=== PATIENT | female | born 1970 | race Caucasian/White ===

== ENCOUNTER 2016-09-07 09:02 | Emergency (ER) ==
[2016-09-07 09:09] VITALS: BP 149/095
[2016-09-07 09:41] LABS: MANUAL DIFF NEEDED? NO
[2016-09-07 09:44] LABS: BASO% 0.3 % (0.0-0.8); EOS# 0.09 X1000 (0.0-0.7); EOS% 0.6 % (0.0-10.0); HEMATOCRIT 41.7 % (37.0-47.0); HEMOGLOBIN 14.5 g/dL (12.0-16.0); IMM GRAN# 0.27 X1000 (0.0-0.04); IMM GRAN% 1.8 % (0.0-0.5); LYMPH# 1.94 X1000 (1.2-3.4); LYMPH% 13.1 % (20.5-51.1); MCH 29.5 PG (27-31); MCHC 34.8 g/dL (33-37); MCV 84.9 FL (81-99); MONO# 0.68 X1000 (0.11-0.59); MONO% 4.6 % (1.7-9.3); MPV 10.5 FL (7.4-10.4); NEUT% 79.6 % (42.2-75.2); PLT 421 X1000 (130-400); RBC 4.91 XMIL (4.2-5.4)
[2016-09-07 10:04] LABS: AGAP 17; ALBUMIN 4.1 g/dL (3.5-5.0); ALKALINE PHOSPHATASE 78 U/L (32-104); BUN 20 mg/dL (8-22); CALCIUM 9.1 mg/dL (8.8-10.2); CHLORIDE 98 mmol/L (98-107); COSMO 276; GOT 36 U/L (10-30); GPT 42 U/L (10-36); POTASSIUM 3.6 mmol/L (3.5-5.1); SODIUM 133 mmol/L (136-145); TCO2 18 mmol/L (25-35); TOTAL PROTEIN 7.5 g/dL (6.3-8.3)
--- NOTE | 2016-09-07 10:10 | Diag Imaging Result Document ---
PROCEDURE NAME: CHEST-2 VIEWS - 09/07/2016 PA AND LATERAL RADIOGRAPH OF THE CHEST: COMPARISON: 05/18/2011. FINDINGS: The lungs are grossly clear. There is no discrete pleural fluid collection or evidence of pneumothorax. The cardiomediastinal silhouette and upper airway are grossly unremarkable. IMPRESSION: No evidence of acute chest pathology.
[2016-09-07] MEDS ORDERED: ZOFRAN IV ONE (10:40)
[2016-09-07] MEDS ORDERED: ZITHROMAX PO ONE (10:40)
[2016-09-07] MEDS ORDERED: TYLENOL WITH CODEINE #3 PO ONE (10:40)
[2016-09-07] MEDS ORDERED: DUONEB (A & A) INH ONE (10:42)
--- NOTE | 2016-09-07 11:00 | PROVIDER DOCUMENTATION ---
HPI-Respiratory General - General Source: patient - History of Present Illness-Resp Quality of Pain: reports: aching Severity in ED: reports: severe Onset/Duration: reports: other (10 days) Timing: reports: getting worse Cough Quality/Degree: reports: dry cough Current Respiratory Medication Therapy: Initiated see nurses note Similar Symptoms Previously?: Yes Recently seen or treated by another doctor?: Yes <Linus Wadsworth - Last Filed: 09/07/16 12:56> <Jaymie Puente - Last Filed: 09/07/16 13:01> - General Chief Complaint: Shortness of Breath Stated Complaint: SOB Time Seen by Provider: 09/07/16 09:29 Allergies/Adverse Reactions: Patient Allergies Allergy/AdvReac Type Severity Reaction Status Date / Time aspirin Allergy SHORTNESS Verified 09/07/16 09:14 OF BREATH nalbuphine HCl * Allergy ANAPHYLAXIS Verified 09/07/16 09:14 [From Nubain] Penicillins Allergy HIVES Verified 09/07/16 09:14 sumatriptan [From Imitrex] Allergy SWELLING Verified 09/07/16 09:14 sumatriptan succinate * Allergy SWELLING Verified 09/07/16 09:14 [From Imitrex] Tetracyclines Allergy SHORTNESS Verified 09/07/16 09:14 OF BREATH Home Medications: [facility] [place] 09/07/16 - History of Present Illness-Resp Nature of Presenting Problem: Reports to er with cc of sob x 10 days with left upper chest pain reports seen pcp given steroids and cough syrup reports no relief. Pt is holding her left chest. Reports stress test 2 years ago. Dendain n,v,f. (Linus Wadsworth) Review of Systems - Adult - REVIEW OF SYSTEMS - ADULT Constitutional: denies: chills, fever, fatique Eyes: reports: no symptoms reported Ears, Nose, Mouth & Throat: reports: no symptoms reported Cardiovascular: reports: chest pain. denies: irregular heart rate, orthopnea, syncope Respiratory: reports: cough, shortness of breath. denies: excessive sputum production, hemoptysis, pleurisy, wheezing Gastrointestinal: reports: no symptoms reported Genitourinary: reports: no symptoms reported Musculoskeletal: reports: no symptoms reported Integumentary: reports: no symptoms reported Neurological: reports: no symptoms reported Psychiatric: reports: no symptoms reported Endocrine: reports: no symptoms reported Hematologic/Lymphatic: reports: no symptoms reported Allergic/Immunologic: reports: no symptoms reported All Other Systems: Reviewed and Negative <WadsworthLinus - Last Filed: 09/07/16 12:56> Past History - Adult - PAST MEDICAL HISTORY-ADULT Review of Records: reports: Nursing Assessment Review Major Childhood Illnesses: reports: denies history Cardiovascular: reports: denies history Respiratory: reports: asthma Neurological: reports: headaches/migraines Endocrine/Immune: reports: Diabetes - PRIOR SURGERIES/PROCEDURES Surgical/Procedure History: reports: cholecystectomy, , breast - IMMUNIZATION STATUS Childhood Immunizations: See Nurse Assessment Flu Vaccine: See Nurse Assessment - FAMILY HISTORY Family History: reviewed, not pertinent - SOCIAL HISTORY Smoking: denies Substance Use: none/never <AnanthLinus - Last Filed: 09/07/16 12:56> Physical Exam-General - PHYSICAL EXAM-ADULT Initial Vital Signs Reviewed: Yes - CONSTITUTIONAL General Appearance: appears well, alert, no apparent distress - EYES Eyes: PERRL/EOMI, pink conjunctivae - HEAD, EARS, NOSE, MOUTH & THROAT HENMT: normocephalic/atraumatic, moist mucous membranes, normal ENT inspection - NECK Neck: non-tender, full range of motion, normal inspection - RESPIRATORY Respiratory: chest non-tender, lungs clear, normal breath sounds - CARDIOVASCULAR Cardiovascular: normal peripheral pulses, regular rate, rhythm, no edema - GASTROINTESTINAL (ABDOMEN) Abdominal Exam: normal bowel sounds, non tender, soft - LYMPHATIC Lymphatic: no adenopathy - MUSCULOSKELETAL Back Exam: normal inspection, no CVA tenderness, no vertebral tenderness Extremity: normal range of motion, non-tender, normal gait - SKIN Integumentary: normal color, normal turgor, warm/dry - NEUROLOGIC Neurologic: grossly normal, no motor/sensory deficits - PSYCHIATRIC Psych/Mental Status: normal mood/affect, normal thought content, normal thought process, oriented x 3 <AnanthLinus - Last Filed: 09/07/16 12:56> Progress - EKG 1 Time of EKG reading by physician:: 10:48 EKG Read and Signed by:: Jaymie Puente EKG Interpretation (*Must complete 3 of following elements*): Abnormal Rate: 92 Rhythm: nsr with sinus arrhtymia [place]: left Comments: ST and T wave abnormality consider anterior ischemia - XRAY 1 XRAY: Bilateral XRAY Study: Chest Impression: Normal XRAY Interpretation: nad <Linus Wadsworth - Last Filed: 09/07/16 12:56> <Jaymie Puente X - Last Filed: 09/07/16 13:01> - PLAN OF CARE/RESULTS Progress/Plan/Lab Results: Orders Category Date Time Status CHEST-2 VIEWS [RAD] Stat Exams 09/07/16 09:16 Draft ABG [RESP] Routine Lab 09/07/16 10:41 Ordered CBC WITH DIFF [HEME] Stat Lab 09/07/16 09:30 Completed COMPREHENSIVE METABOLIC PANEL [CHEM] Stat Lab 09/07/16 09:30 Completed D-DIMER PL [COAG] Stat Lab 09/07/16 09:[address] Stat Lab 09/07/16 09:[address] Stat Lab 09/07/16 09:45 Completed LACTATE, PLASMA [CHEM] Stat Lab 09/07/16 09:30 Completed TROPONIN T Stat Lab 09/07/16 09:30 Received UA [URINALYSIS PL] [URINALYSIS] Stat Lab 09/07/16 09:30 Ordered Acetaminophen with Codeine [Tylenol with Codeine #3] Med 09/07/16 10:40 Discontinued 1 each PO NOW ONE Albuterol 2.5MG/Ipratrop 0.5MG [Duoneb (A & A)] Med 09/07/16 10:42 Discontinued 3 ml INH NOW ONE Azithromycin [Zithromax] Med 09/07/16 10:40 Discontinued 500 mg PO NOW ONE Ondansetron [Zofran] Med 09/07/16 10:40 Discontinued 4 mg IV NOW ONE Aerosol Treatments Routine Oth 09/07/16 10:42 Active Aerosol Treatments Stat Oth 09/07/16 10:42 Active Vital Signs - 24 hr 09/07/16 09:06 Temperature 97.5 F L Pulse Rate 101 H Respiratory 24 Rate Blood Pressure 149/095 O2 Sat by Pulse 97 Oximetry Laboratory Tests 09/07/16 09/07/16 09/07/16 09:30 09:30 09:30 WBC 14.77 H RBC 4.91 Hgb 14.5 Hct 41.7 MCV 84.9 MCH 29.5 MCHC 34.8 RDW Std Deviation 13.2 Plt Count 421 H MPV 10.5 H Immature Gran % (Auto) 1.8 H Neut % (Auto) 79.6 H Lymph % (Auto) 13.1 L Castro % (Auto) 4.6 Eos % (Auto) 0.6 Baso % (Auto) 0.3 Immature Gran # (Auto) 0.27 H Neut # (Auto) 11.74 H Lymph # (Auto) 1.94 Castro # (Auto) 0.68 H Eos # (Auto) 0.09 Baso # (Auto) 0.05 Sodium 133 L Potassium 3.6 Chloride 98 Carbon Dioxide 18 L Anion Gap 17 BUN 20 Creatinine 0.9 Estimated GFR/1.73 m2 > 60 BUN/Creatinine Ratio 22 Glucose 225 H Calculated Osmolality 276 Calcium 9.1 Total Bilirubin 0.20 AST 36 H ALT 42 H Alkaline Phosphatase 78 Total Protein 7.5 Albumin 4.1 Globulin 3.0 Albumin/Globulin Ratio 1.0 Plasma Lactate 2.7 H Influenza A (Rapid) Influenza B (Rapid) Group A Strep Rapid 09/07/16 09/07/16 09:45 09:45 WBC RBC Hgb Hct MCV MCH MCHC RDW Std Deviation Plt Count MPV Immature Gran % (Auto) Neut % (Auto) Lymph % (Auto) Castro % (Auto) Eos % (Auto) Baso % (Auto) Immature Gran # (Auto) Neut # (Auto) Lymph # (Auto) Castro # (Auto) Eos # (Auto) Baso # (Auto) Sodium Potassium Chloride Carbon Dioxide Anion Gap BUN Creatinine Estimated GFR/1.73 m2 BUN/Creatinine Ratio Glucose Calculated Osmolality Calcium Total Bilirubin AST ALT Alkaline Phosphatase Total Protein Albumin Globulin Albumin/Globulin Ratio Plasma Lactate Influenza A (Rapid) NEGATIVE Influenza B (Rapid) NEGATIVE Group A Strep Rapid NEGATIVE Laboratory Tests 09/07/16 09/07/16 09/07/16 09:30 09:30 09:30 WBC 14.77 H RBC 4.91 Hgb 14.5 Hct 41.7 MCV 84.9 MCH 29.5 MCHC 34.8 RDW Std Deviation 13.2 Plt Count 421 H MPV 10.5 H Immature Gran % (Auto) 1.8 H Neut % (Auto) 79.6 H Lymph % (Auto) 13.1 L Castro % (Auto) 4.6 Eos % (Auto) 0.6 Baso % (Auto) 0.3 Immature Gran # (Auto) 0.27 H Neut # (Auto) 11.74 H Lymph # (Auto) 1.94 Castro # (Auto) 0.68 H Eos # (Auto) 0.09 Baso # (Auto) 0.05 D-Dimer Specimen Type Sample Site pH pCO2 pO2 HCO3 Base Excess Oxyhemoglobin ABG O2 Sat (Calculated) ABG O2 Saturation ABG Carboxyhemoglobin ABG Methemoglobin Horacio Test A-a O2 Difference Total Hemoglobin Lactate Blood Gas Modality FiO2 % Sodium 133 L Potassium 3.6 Chloride 98 Carbon Dioxide 18 L Anion Gap 17 BUN 20 Creatinine 0.9 Estimated GFR/1.73 m2 > 60 BUN/Creatinine Ratio 22 Glucose 225 H Calculated Osmolality 276 Calcium 9.1 Total Bilirubin 0.20 AST 36 H ALT 42 H Alkaline Phosphatase 78 Total Protein 7.5 Albumin 4.1 Globulin 3.0 Albumin/Globulin Ratio 1.0 Plasma Lactate 2.7 H Influenza A (Rapid) Influenza B (Rapid) Group A Strep Rapid 09/07/16 09/07/16 09/07/16 09:30 09:45 09:45 WBC RBC Hgb Hct MCV MCH MCHC RDW Std Deviation Plt Count MPV Immature Gran % (Auto) Neut % (Auto) Lymph % (Auto) Castro % (Auto) Eos % (Auto) Baso % (Auto) Immature Gran # (Auto) Neut # (Auto) Lymph # (Auto) Castro # (Auto) Eos # (Auto) Baso # (Auto) D-Dimer 0.46 Specimen Type Sample Site pH pCO2 pO2 HCO3 Base Excess Oxyhemoglobin ABG O2 Sat (Calculated) ABG O2 Saturation ABG Carboxyhemoglobin ABG Methemoglobin Horacio Test A-a O2 Difference Total Hemoglobin Lactate Blood Gas Modality FiO2 % Sodium Potassium Chloride Carbon Dioxide Anion Gap BUN Creatinine Estimated GFR/1.73 m2 BUN/Creatinine Ratio Glucose Calculated Osmolality Calcium Total Bilirubin AST ALT Alkaline Phosphatase Total Protein Albumin Globulin Albumin/Globulin Ratio Plasma Lactate Influenza A (Rapid) NEGATIVE Influenza B (Rapid) NEGATIVE Group A Strep Rapid NEGATIVE 09/07/16 10:48 WBC RBC Hgb Hct MCV MCH MCHC RDW Std Deviation Plt Count MPV Immature Gran % (Auto) Neut % (Auto) Lymph % (Auto) Castro % (Auto) Eos % (Auto) Baso % (Auto) Immature Gran # (Auto) Neut # (Auto) Lymph # (Auto) Castro # (Auto) Eos # (Auto) Baso # (Auto) D-Dimer Specimen Type ARTERIAL Sample Site L BRACHIAL pH 7.42 pCO2 31 L pO2 90 HCO3 22.4 Base Excess -3.2 L Oxyhemoglobin 95.2 ABG O2 Sat (Calculated) 20.7 ABG O2 Saturation 98.1 ABG Carboxyhemoglobin 1.70 ABG Methemoglobin 1.3 Horacio Test YES A-a O2 Difference 21.0 Total Hemoglobin 15.4 Lactate 2.90 H Blood Gas Modality ROOM AIR FiO2 % 21.0 Sodium Potassium Chloride Carbon Dioxide Anion Gap BUN Creatinine Estimated GFR/1.73 m2 BUN/Creatinine Ratio Glucose Calculated Osmolality Calcium Total Bilirubin AST ALT Alkaline Phosphatase Total Protein Albumin Globulin Albumin/Globulin Ratio Plasma Lactate Influenza A (Rapid) Influenza B (Rapid) Group A Strep Rapid Laboratory Tests 09/07/16 09/07/16 09/07/16 09:30 09:30 09:30 WBC 14.77 H RBC 4.91 Hgb 14.5 Hct 41.7 MCV 84.9 MCH 29.5 MCHC 34.8 RDW Std Deviation 13.2 Plt Count 421 H MPV 10.5 H Immature Gran % (Auto) 1.8 H Neut % (Auto) 79.6 H Lymph % (Auto) 13.1 L Castro % (Auto) 4.6 Eos % (Auto) 0.6 Baso % (Auto) 0.3 Immature Gran # (Auto) 0.27 H Neut # (Auto) 11.74 H Lymph # (Auto) 1.94 Castro # (Auto) 0.68 H Eos # (Auto) 0.09 Baso # (Auto) 0.05 D-Dimer Specimen Type Sample Site pH pCO2 pO2 HCO3 Base Excess Oxyhemoglobin ABG O2 Sat (Calculated) ABG O2 Saturation ABG Carboxyhemoglobin ABG Methemoglobin Horacio Test A-a O2 Difference Total Hemoglobin Lactate Blood Gas Modality FiO2 % Sodium 133 L Potassium 3.6 Chloride 98 Carbon Dioxide 18 L Anion Gap 17 BUN 20 Creatinine 0.9 Estimated GFR/1.73 m2 > 60 BUN/Creatinine Ratio 22 Glucose 225 H Calculated Osmolality 276 Calcium 9.1 Total Bilirubin 0.20 AST 36 H ALT 42 H Alkaline Phosphatase 78 Troponin T Total Protein 7.5 Albumin 4.1 Globulin 3.0 Albumin/Globulin Ratio 1.0 Plasma Lactate 2.7 H Influenza A (Rapid) Influenza B (Rapid) Group A Strep Rapid 09/07/16 09/07/16 09/07/16 09:30 09:30 09:45 WBC RBC Hgb Hct MCV MCH MCHC RDW Std Deviation Plt Count MPV Immature Gran % (Auto) Neut % (Auto) Lymph % (Auto) Castro % (Auto) Eos % (Auto) Baso % (Auto) Immature Gran # (Auto) Neut # (Auto) Lymph # (Auto) Castro # (Auto) Eos # (Auto) Baso # (Auto) D-Dimer 0.46 Specimen Type Sample Site pH pCO2 pO2 HCO3 Base Excess Oxyhemoglobin ABG O2 Sat (Calculated) ABG O2 Saturation ABG Carboxyhemoglobin ABG Methemoglobin Horacio Test A-a O2 Difference Total Hemoglobin Lactate Blood Gas Modality FiO2 % Sodium Potassium Chloride Carbon Dioxide Anion Gap BUN Creatinine Estimated GFR/1.73 m2 BUN/Creatinine Ratio Glucose Calculated Osmolality Calcium Total Bilirubin AST ALT Alkaline Phosphatase Troponin T < 0.010 Total Protein Albumin Globulin Albumin/Globulin Ratio Plasma Lactate Influenza A (Rapid) Influenza B (Rapid) Group A Strep Rapid NEGATIVE 09/07/16 09/07/16 09:45 10:48 WBC RBC Hgb Hct MCV MCH MCHC RDW Std Deviation Plt Count MPV Immature Gran % (Auto) Neut % (Auto) Lymph % (Auto) Castro % (Auto) Eos % (Auto) Baso % (Auto) Immature Gran # (Auto) Neut # (Auto) Lymph # (Auto) Castro # (Auto) Eos # (Auto) Baso # (Auto) D-Dimer Specimen Type ARTERIAL Sample Site L BRACHIAL pH 7.42 pCO2 31 L pO2 90 HCO3 22.4 Base Excess -3.2 L Oxyhemoglobin 95.2 ABG O2 Sat (Calculated) 20.7 ABG O2 Saturation 98.1 ABG Carboxyhemoglobin 1.70 ABG Methemoglobin 1.3 Horacio Test YES A-a O2 Difference 21.0 Total Hemoglobin 15.4 Lactate 2.90 H Blood Gas Modality ROOM AIR FiO2 % 21.0 Sodium Potassium Chloride Carbon Dioxide Anion Gap BUN Creatinine Estimated GFR/1.73 m2 BUN/Creatinine Ratio Glucose Calculated Osmolality Calcium Total Bilirubin AST ALT Alkaline Phosphatase Troponin T Total Protein Albumin Globulin Albumin/Globulin Ratio Plasma Lactate Influenza A (Rapid) NEGATIVE Influenza B (Rapid) NEGATIVE Group A Strep Rapid (Linus Wadsworth) Departure - Departure Time of Disposition Order: 12:57 Certified Medical Emergency: Emergent <Linus Wadsworth - Last Filed: 01/05/17 12:56> - Departure Time of Disposition Order: 12:59 Certified Medical Emergency: Emergent <KwameJaymie Rod - Last Filed: 09/07/16 13:01> - Departure DIAGNOSIS: Atypical chest pain, Bronchitis, Chronic cough Disposition: HOME 01 Condition: Stable Additional Instructions: ED Follow Up Instructions: You have been treated by a care provider in the Emergency Department. These instructions are being provided to you so you can have an understanding of how to care for yourself upon discharge. Upon discharge from the Emergency Department, you are responsible for making arrangements for follow-up care by a physician of your choice. Take all prescribed medications as directed. Return to the Emergency Department immediately for any new or worsening symptoms. You may call the Physician Referral phone number at [phone] to obtain a list of Physicians who are taking new patients. Prescriptions: Azithromycin 500 mg PO DAILY #7 tablet Acetaminophen with Codeine [Tylenol with Codeine #3] 1 each PO Q8H PRN PRN #10 tablet PRN Reason: Cough Referrals: Conrado Estrada [Primary Care Provider] - Attestation - Scribe Verification/Attestation Scribe:: Linus Wadsworth Acting as Scribe for:: Jaymie Puente Scribe documention review:: This chart was documented by a scribe and accurately reflects the service the provider performed and the decisions made by the provider. <Linus Wadsworth - Last Filed: 09/07/16 12:56> Physician Attestation
[2016-09-07 11:02] LABS: BE -3.2 mmoll (-3.0-3.0); BLOOD TYPE ARTERIAL; DRAW SITE L BRACHIAL; METHB 1.3 % (0.0-1.5); O2(CT) 20.7 mL/dL (15.0-23.0); PCO2(98.6) 31 mmHg (35-45); PO2(98.6) 90 mmHg (60-100); SAMPLE BLOOD; SAO2 98.1 % (95.0-100.0); THB 15.4 g/dL (11.5-17.4); pH(98.6) 7.42 (7.35-7.45)
[2016-09-07 11:10] LABS: ALLEN TEST YES; MODALITY ROOM AIR
--- NOTE | 2016-09-07 11:40 | EKG Report ---
Test Performed on : 09/07/2016 10:48:49 AM Test Reason : SOB Blood Pressure : / mmHG Vent. Rate : 092 BPM Atrial Rate : 092 BPM P-R Int : 128 ms QRS Dur : 082 ms QT Int : 362 ms P-R-T Axes : 051 -35 -28 degrees QTc Int : 447 ms Normal sinus rhythm. with sinus arrhythmia. Left axis deviation ST & T wave abnormality, consider anterior ischemia Abnormal ECG When compared with ECG of 18-MAY-2011 11:47, Inverted T waves have replaced nonspecific T wave abnormality in Inferior leads Nonspecific T wave abnormality now evident in Lateral leads Unconfirmed Result
== END 2016-09-07 13:20 | disposition home or self-care (01) ==
LOC: P.ED 09:02
DX: J40 Bronchitis, not specified as acute or chronic (principal); R07.89 Other chest pain; R05 Cough; R94.31 Abnormal electrocardiogram [ECG] [EKG]; R06.02 Shortness of breath; E11.9 Type 2 diabetes mellitus without complications
CPT/HCPCS: 36415; 71020; 80053; 82805; 83605; 84484; 85025; 85379; 87081; 87430; 87804; 93005; 94640; 96374; J2405